=== PATIENT | male | born 1950 | race Caucasian/White ===

== ENCOUNTER 2017-04-27 08:47 | Day surgery (SDC) | payer MEDICARE ==
[2017-04-27 09:49] LABS: AUTOMATED NEUTROPHIL # 4.2 TH/MM3 (1.8-7.7); BASOPHIL % 0.3 % (0.0-2.0); EOSINOPHIL # 0.3 TH/MM3 (0-0.4); EOSINOPHIL % 3.4 % (0.0-4.0); HEMATOCRIT 44.8 % (39.0-51.0); HEMO FLAGS DIFF FINAL; LYMPH % 33.1 % (9.0-44.0); LYMPHOCYTE # 2.6 TH/MM3 (1.0-4.8); MEAN CELL VOLUME 89.5 FL (80.0-100.0); MEAN CORPUSCULAR HEMOGLOBIN 30.8 PG (27.0-34.0); MEAN CORPUSCULAR HGB CONC 34.5 % (32.0-36.0); MONO % 10.1 % (0.0-8.0); NEUT % 53.1 % (16.0-70.0); PLATELET COUNT 137 TH/MM3 (150-450); RED BLOOD COUNT 5.01 MIL/MM3 (4.50-5.90); RED CELL DISTRIBUTION WIDTH 14.1 % (11.6-17.2); WHITE BLOOD COUNT 7.9 TH/MM3 (4.0-11.0)
[2017-04-27 10:01] LABS: APTT (PATIENT) 40.1 SEC (24.3-30.1); INTERNATIONAL NORMALIZED RATIO 2.3 RATIO; PROTHROMBIN TIME - PATIENT 25.8 SEC (9.8-11.6)
[2017-04-27 10:05] VITALS: BP 157/100; PULSE 84; RESP 18; TEMP 98.4; O2SAT 97
[2017-04-27 10:05] LABS: BICARBONATE 26.6 MEQ/L (21.0-32.0); POTASSIUM 4.1 MEQ/L (3.5-5.1)
[2017-04-27] MEDS ORDERED: CANA100T PO (10:08)
[2017-04-27] MEDS ORDERED: METO1TAB9 PO (10:08)
[2017-04-27] MEDS ORDERED: KOMB5TAB2 PO (10:08)
[2017-04-27] MEDS ORDERED: ATOR20TA15 PO (10:08)
[2017-04-27] MEDS ORDERED: WARF-60 PO (10:08)
[2017-04-27] MEDS ORDERED: CARD120C4 PO (10:08)
[2017-04-27] MEDS ORDERED: GLIM4TAB PO (10:08)
[2017-04-27] MEDS ORDERED: METF500T PO (10:08)
[2017-04-27] MEDS ORDERED: CHLORHEXIDINE GLUCONATE 2 % 1 PACK (2 CLOTHS) TOPICAL PRN (10:15)
[2017-04-27] MEDS ORDERED: METOPROLOL TARTRATE 25 MG TAB PO PRN (10:15)
[2017-04-27] MEDS ORDERED: LACTATED RINGER'S 1000 ML IV PRN (10:15)
[2017-04-27] MEDS ORDERED: SODIUM CHLORID 0.9% 500 ML IV PRN (10:15)
[2017-04-27] MEDS ORDERED: POVIDONE IODINE 5% (ANTISEPSIS KIT) 4 APPLICATIONS EACH NARE PRN (10:15)
[2017-04-27] MEDS ORDERED: CHLORHEXIDINE GLUCONATE 2 % 1 PACK (2 CLOTHS) TOPICAL SCH (10:30)
[2017-04-27] MEDS ORDERED: POVIDONE IODINE 5% (ANTISEPSIS KIT) 4 APPLICATIONS EACH NARE SCH (10:30)
[2017-04-27] MEDS ORDERED: VANCOMYCIN 1000 MG/NS 250 ML IV SCH ×2 (10:30)
[2017-04-27] MEDS ORDERED: LORazepam 1 MG TAB SL SCH (10:30)
[2017-04-27] MEDS ORDERED: MUPIROCIN 2% OINT 1 APPLIC/GM SYR NASAL SCH (10:30)
[2017-04-27] MEDS ORDERED: ceFAZolin 2 GM PREMIX 50 ML IV SCH (10:30)
[2017-04-27] MEDS ORDERED: FAMOTIDINE 20 MG/2 ML VIAL ONE (13:21)
[2017-04-27] MEDS ORDERED: LIDOCAINE HCL 2% 50 ML VIAL ONE (13:54)
[2017-04-27] MEDS ORDERED: VANCOMYCIN 500 MG VIAL ONE (13:54)
[2017-04-27] MEDS ORDERED: CEPH-460 PO (14:41)
[2017-04-27] MEDS ORDERED: HYDR-3366 PO (14:41)
--- NOTE | 2017-04-27 14:43 | CATHPROC ---
[facility] HIS Report Study Information Study Number Admission Scheduled Start Study Start [id number] Apr 27 2017 8:47AM 04/27/2017 Apr 27 2017 1:44PM [place] Service Electrophysiology Study Admit Source Facility Department Other [facility] - Investor Physician and Clinical Staff Initial Ivania Goetz Machine Design Checker Jennifer Randall,RT(R) TECH2 Other Anesthesia, ACID OPERATOR Recorder Joselyn Koo,RN Scrub Gabriela Wood,JEWELRY SETTER TECH2 Equipment Time Reel Winder Description Size Mfg Part Number Used/Scraped [employer]/ EP 14:24 PACEMAKER, ACCOLADE DDDR [id number] Used PACER DERMABOND, ADHESIVE SKIN [id number] 14:16 CORDIS/PACER * Used GLUE MINI *[id number] TP-1103 14:16 [employer] SUTURE, STRIP PLUS 1/2" * Used *[id number] 14:16 MEDLINE PACER STALLWORTH, LIMB * 2530 *[id number] Used [id number] 14:16 MEDLINE PACER PACK, PACER CUSTOM * Used *[id number] 14:26 Needle Sponge Count 1 1 Used 14:26 Needle Sponge Count 1 111 Used 14:26 Needle Sponge Count 20 200 Used SUTURE, 2-0 VICRYL [CT1] (CHK213C) [id number] 14:16 [facility] BLANKET,WARM AIR CCL * Used *[id number] [facility] PAD, ELECTROSURGICAL 14:16 * [id number] *[id number] Used SURGICAL GROUNDING ORANGE History: Allergies Allergy Reaction No Known Allergies History: Risk Factors Hypertension Dyslipidemia Yes Yes Labs Hgb (g/dl) Hct (%) RBC (MIL/MM3) WBC (l/cumm) Platelets (thousands) 11.60-17.00 35.00-51.00 4.00-5.90 4.00-11.00 150.00-450.00 15.0 44 5 7.9 137 Glucose (mg/dl) BUN (mg/dl) Creatinine (mg/dl) BUN:Creatinine (1:x) 74.00-106.00 7.00-18.00 0.50-1.30 10.00-20.00 229 9 0.8 11.3 Na (meq/l) K (meq/l) 136.00-145.00 3.50-5.10 138 4.1 INR (PTT:PT) 0.90-1.10 2.3 Medication Medication Total Dose (Bolus/Oral) Medication Total Dosage/Unit 2% XYLOCAINE 50 mL Medications (Bolus/Oral) Medication Time Given Dosage/Unit Administered By Reason 2% XYLOCAINE 04/27/2017 2:17:20 PM 50 mL Ivania Dong 50 mL 2% XYLOCAINE given in lab by Ivania Dong via Subcutaneous. Medication (Drip) Medication Time Given Dosage/Unit Concentration/Unit Diluent (ml) Solution ANCEF 04/27/2017 1:59:55 PM 2 g 2 g ANCEF given in lab by Anesthesia, ACID OPERATOR in Right Antecubital via Peripheral IV. Ordered by Ivania Dong. Reason: As per physicians verbal order. VANCOMYCIN DRIP 04/27/2017 1:59:00 PM 1 g 1 g VANCOMYCIN DRIP given in lab by Anesthesia, ACID OPERATOR in Right Antecubital via Peripheral IV. Ordered by Ivania Dong. Reason: As per physicians verbal order. Initial Case Assessment Cardiovascular HR Rhythm NIBP Chest Pain 84 af 144/81 0 Edema Present Skin color Skin None Normal Warm Dry Circulatory - Right Pulses Radial 2 Scale (0,1,2,3,4,d) Circulatory - Left Pulses Radial 2 Scale (0,1,2,3,4,d) Circulatory - Lower Extremities Color Lower Right Color Lower Left Normal Normal Neurological State Oriented to time-place- Alert Moves all extremities person Respiration - General Respiration Rate SpO2 (%) (B/min) 20 100 Final Case Assessment Cardiovascular HR Rhythm NIBP Chest Pain 78 af 106/66 0 Edema Present Skin color Skin None Normal Warm Dry Circulatory - Right Pulses Radial 3 Scale (0,1,2,3,4,d) Circulatory - Left Pulses Radial 3 Scale (0,1,2,3,4,d) Circulatory - Lower Extremities Color Lower Right Color Lower Left Normal Normal Neurological State Oriented to time-place- Lethargic Moves all extremities person Respiration - General Respiration Rate SpO2 (%) O2 (lpm) (B/min) 16 100 6 Chronological Log Time Study Chronological Log 13:44:07 Patient arrived via Bed. 13:44:08 Patient Name, D.O.B, / [place] Verified By R.N. 13:44:10 Consent signed by the physician and the patient and verified by the Investor staff. 13:44:11 Pre-op and post- op instructions given; patient acknowledges understanding of instructions. 13:44:11 Verbal Stimulation=2 Physical Stimulation=2 Airway=2 Respiration=2 TOTAL=8. (0=absent, 1=li mited, 2=present) 13:44:13 Anesthesia at bedside. Assumes care of patient. Will 13:44:23 Patient has been NPO for More than 6Hrs. 13:44:24 Skin Breakdown- 13:44:25 Patient Warmer Placed on the Table. 13:44:26 Disposable Defibrillator Pads Placed On Patient. 13:44: Anthony Prominences Protected 13:44:28 A # 20 IV was noted in the Antecubital (right). Grade = 0 0.9ns kvo 13:44:29 A # 20 IV was noted in the Antecubital (left). Grade = 0 0.9ns kvo 13:44:29 History and physical on the chart or being dictated. Assessment: Initial Case, HR=84 BPM, Rhythm=af, KZJO=886/81 mmhg, Chest Pain=0, Edema=None, Col or=Normal, Skin = Warm, Dry Right Pulses: Radial=2 Left Pulses: Radial=2 13:50:00 Lower Right Extremities: Color=Normal Lower Left Extremities: Color=Normal Neurological: State=Alert, Ox3, NUNEZ Respiration: Resp=20 B/min, VwU4=367 % 13:54:58 Bovie ground pad applied to: right thigh First Sponge And Instrument Count Done by Gabriela Wood, JEWELRY SETTER TECH2. 13:58:29 Hypo's: 1, Sponges: 20, Bovie/scratch: 1 Sutures: 2, Blades: 1, Instruments: 25, Syveck Patches: 0 1 g VANCOMYCIN DRIP given in lab by Anesthesia, ACID OPERATOR in Right Antecubital via Peripheral IV. Or dered by Iker, 13:59:00 Ivania. Reason: As per physicians verbal order. 2 g ANCEF given in lab by Anesthesia, ACID OPERATOR in Right Antecubital via Peripheral IV. Ordered by Ivania Vidal. Reason: 13:59:55 As per physicians verbal order. 14:00:19 2% CHLORHEXIDINE GLUCONATE WASH AND NASAL SWIPE DONE PRIOR TO PROCEDURE. 14:02:58 Table restraints applied according to hospital policy 14:03:08 Right Upper Chest Prepped Times Two. 14:11:38 MD paged 14:16:06 MD arrived. Time Out. Correct patient, procedure, procedure equipment, site and side verified with physicia n present. Time 14:17:00 concurred by MD, individual staff and ACID OPERATOR. Time Out #2 - Consents verified, patient in correct position, all results are labled and displa yed, safety precautions 14:17:09 taken, antibiotics administered. Time out concurred by MD, individual staff and ACID OPERATOR in procedu re 14:17:19 Case Start 14:17:20 50 mL 2% XYLOCAINE given in lab by Ivania Dong via Subcutaneous. 14:18:28 Surgical Incision Made. 14:21:08 A pocket was created at the R Upper Chest. 14:22:00 A device was explanted. 14:23:29 Pocket flushed with antibiotic solution 14:24:13 A PACEMAKER, ACCOLADE DR DDDR was connected and placed in the pocket. 14:29:16 DOCU called. Spoke to [place] 14:29:39 Bedside Report will be given. Second Sponge And Instrument Count Done by TF. 14:34:19 Hypo's: 1, Sponges: 20, Bovie/scratch: 1 Sutures: 2, Blades: 1, Instruments: 25, Syveck Patches: 0 14:36:29 Pocket being closed. 14:37:39 Reference ECG taken 14:38:36 Implant Procedure was performed. 14:38:42 A (Dual) DC PPM Gen change 14:38:50 The pocket was closed. Final Sponge And Instrument Count Done by TF. 14:39:58 Hypo's: 1, Sponges: 20, Bovie/scratch: 1 Sutures: 2, Blades: 1, Instruments: 25, Syveck Patches: 0 14:41:12 Steri-strips and a sterile dressing applied to site. Assessment: Final Case, HR=78 BPM, Rhythm=af, FXZV=797/66 mmhg, Chest Pain=0, Edema=None, Raymond r=Normal, Skin = Warm, Dry Right Pulses: Radial=3 Left Pulses: Radial=3 14:42:06 Lower Right Extremities: Color=Normal Lower Left Extremities: Color=Normal Neurological: State=Lethargic, Ox3, NUNEZ Respiration: Resp=16 B/min, XeC8=890 %, O2=6 lpm 14:43:03 Case End 14:43:18 No case complications noted. 14:43:19 Cine recording checked. 14:43:21 Implantable Device card placed in patient's chart. 14:43:51 Defibrillator and ground pads removed. Skin intact. 14:48:25 Patient moved to stretcher End Study - Contrast Media Used In Study Contrast Total Opened (mL) Total Used (mL) Total Wasted (mL) Unspecified 0 0 0 End Study - Maximum Contrast Load Max Contrast Load (mL) 642.6 End Study - Radiation Exposure Fluoro Time (minutes) 0.1 End Study - Patient Disposition Complications Transferred To Interventional Outcome No Telemetry Bed successful
[2017-04-27] MEDS ORDERED: ONDANSETRON HCL 4 MG/2 ML VIAL IV PUSH PRN (14:45)
[2017-04-27] MEDS ORDERED: SODIUM CHLORIDE 0.9% FLUSH 10 ML FLUSH IV FLUSH PRN (14:45)
[2017-04-27] MEDS ORDERED: ACETAMINOPHEN/CODEINE 300 MG/30 MG TAB PO PRN ×2 (14:45)
--- NOTE | 2017-04-27 17:53 | PD.CARD ---
PPM GENERATOR REPLACEMENT PROCEDURE DATE: Apr 27, 2017 PPM GENERATOR REPLACEMENT PROC PROCEDURE PERFORMED Permanent pacemaker removal, permanent pacemaker replacement, pocket revision. Mr. De Santiago is a 67 -year-old male with history of of tachybrady syndrome, atrial fibrillation, previous pacer inserted 14 years ago, device end of life refers for generator replacement. The risks, the nature and the benefit of the procedure were clearly stated to him. The risks include pneumothorax, cardiac perforation, stroke and even . The patient understood and agreed to proceed. PROCEDURE After written informed consent was obtained, the patient was brought to the EP lab where was prepped and draped in the sterile fashion. Conscious sedation was initiated using intravenous Versed and introducer intravenous fentanyl. Once sedation was verified, the left infraclavicular area over the generator was anesthetized with 2% Xylocaine. Using a #11 scalpel, a 3 centimeter incision was made over the existing generator. Dissection was then taken down to deep fascial layer using Bovie cautery and blunt dissection. Once exposed, the generator was removed from the pocket. The pocket was expanded. Scar tissue was removed around the leads. Then, the leads were disconnected and tested. At that point, the pocket was copiously irrigated using antibiotic solution. The leads were connected to the new generator and placed into the pocket. The pacemaker was interrogated. I did proceed with wound closure. The deep fascial layer was approximated with 2-0 Vicryl suture in a continuous fashion. The subcutaneous layer was approximated with 2-0 Vicryl suture in a continuous fashion. Dermabond adhesive was applied to the wound followed by a sterile pressure dressing. There was no complication. The patient tolerated procedure. Blood loss minimal. EXPLANTED HARDWARE The explanted permanent pacemaker is a [employer]. Model # 1297 serial number [id number]. For information about the existing leads, please refer to previous dictation. IMPLANTED HARDWARE The implanted permanent pacemaker is a [employer] model number L301, serial number [id number]. THRESHOLDS The right atrial pacing threshold in bipolar mode cannot be measured. Patient in atrial fibrillation. Lead impedance 586 ohms. The right ventricular pacing threshold in bipolar mode was .8 volts at .5 milliseconds. Lead impedance 385 ohms. SETTINGS The device is set in a VVIR 60. Upper limit 120 beats per minute. Hysteresis and mode switch are on. CONCLUSIONS Successful permanent pacemaker removal, permanent pacemaker implantation, pocket revision. COMMENT AND RECOMMENDATIONS The patient will be transferred to the telemetry unit. He will be observed. The patient will be discharged home later on today. Ivania Dong MD Apr 27, 2017 17:53
--- NOTE | 2017-04-27 17:57 | EKG ---
Date Performed: 04/27/2017 Time Performed: 09:49:32 PTAGE: 67 years EKG: Atrial fibrillation. Abnormal ECG NO PREVIOUS TRACING DOCTOR: Ivania Dong Interpretating Date/Time 04/27/2017 17:55:41
[2017-04-27] MEDS ORDERED: SODIUM CHLORIDE 0.9% FLUSH 10 ML FLUSH IV FLUSH SCH (21:00)
== END 2017-04-27 17:25 | disposition home or self-care (01) ==
LOC: HDIC 08:47 → HDOC 08:47
PROVIDERS: ATTEND Internal Medicine Interventional Cardiology
DX: Z45.010 Encounter for checking and testing of cardiac pacemaker pulse generator [battery] (principal); I11.9 Hypertensive heart disease without heart failure; I49.5 Sick sinus syndrome; I08.1 Rheumatic disorders of both mitral and tricuspid valves; E11.69 Type 2 diabetes mellitus with other specified complication; E78.5 Hyperlipidemia, unspecified; Z79.84 Long term (current) use of oral hypoglycemic drugs; Z79.01 Long term (current) use of anticoagulants; Z87.891 Personal history of nicotine dependence
CPT/HCPCS: 00400; 33228; 80048; 85025; 85610; 85730; 86850; 86900; 86901; 93005; C1785; J0690; J3370; J7050